=== PATIENT | male | born 1950 | race Caucasian/White ===

== ENCOUNTER → 2017-06-24 | Outpatient (CLI) | payer MEDICARE, OTHER ==
[~2017-06-24] MED LIST: ASCO-182 PO; ASPI81TA94 PO; ATOR40TA24 PO; AZIT-1 PO; BENZ200C15 PO; CLOB15CR22 TP; FLUT16SP19 NS; FLUT16SP20 NS; IBUP200C71 PO; MULT-865 PO; OMEG-5 PO; PRED20TA6 PO; VITA1CAP46 PO
== END ==
LOC: LAB 08:48
PROVIDERS: ATTEND Emergency Medicine
DX: E78.5 Hyperlipidemia, unspecified (principal)
CPT/HCPCS: 36415; 82465; 83718; 84478

== ENCOUNTER 2017-06-26 03:49 | Day surgery (SDC) | payer MEDICARE, OTHER ==
[~2017-06-26] VITALS: Ht 167.6 cm; Wt 84.8 kg
[2017-06-26] VITALS (8 sets, daily range): BP systolic 85–143; BP diastolic 54–82
[2017-06-26] MEDS ORDERED: MIDAZOLAM 2 MG/2 ML VIAL IVP ONE (08:00)
[2017-06-26] MEDS ORDERED: NORMOSOL R SOLN(*) 1000 ML BAG 1,000 ML IV PRN (08:00)
[2017-06-26] MEDS ORDERED: LIDOCAINE/SOD BICARB 8.4% SYR ID ONE (08:00)
[2017-06-26] MEDS ORDERED: LIDOCAINE MPF 1% 5 ML VIAL ONE (12:54)
[2017-06-26] MEDS ORDERED: PROPOFOL EMUL(*) 10MG/ML 20 ML 40 ML ONE (12:54)
[2017-06-26] MEDS ORDERED: PROPOFOL EMUL(*) 10MG/ML 20 ML 20 ML ONE (14:32)
[2017-06-29] MEDS ORDERED: ATOR40TA24 PO (09:50)
== END 2017-06-26 16:05 | disposition home or self-care (01) ==
LOC: OR 03:49
PROVIDERS: ATTEND Internal Medicine
DX: Z12.11 Encounter for screening for malignant neoplasm of colon (principal); K63.5 Polyp of colon
CPT/HCPCS: 00811; 45384; 88305; J2001; J2704

== ENCOUNTER → 2018-06-29 | Outpatient (CLI) | payer MEDICARE, OTHER ==
[~2018-06-29] MED LIST changes: +ALBU8.5H IH; +IBUP-136 PO; -IBUP200C71 PO
[2018-06-29 10:45] LABS: PLATELET COUNT, AUTOMATED 190 K/uL (150-450)
[2018-06-29 11:04] LABS: LDL CHOLESTEROL 51 mg/dl
== END ==
LOC: LAB 10:02
PROVIDERS: ATTEND Emergency Medicine
DX: Z12.5 Encounter for screening for malignant neoplasm of prostate (principal); R63.5 Abnormal weight gain; E78.5 Hyperlipidemia, unspecified; E66.9 Obesity, unspecified; G47.30 Sleep apnea, unspecified
CPT/HCPCS: 84443; 85025; G0103; 36415; 82040; 82247; 82310; 82374; 82435; 82465; 82565; 82947; 83718; 84075; 84132; 84153; 84155; 84295; 84450; 84460; 84478; 84520

== ENCOUNTER → 2018-07-02 | Outpatient (CLI) | payer MEDICARE, OTHER ==
[~2018-07-02] MED LIST changes: +TIOT4MIS5 INH
== END ==
LOC: RESP 06:03
PROVIDERS: ATTEND Emergency Medicine
DX: J98.4 Other disorders of lung (principal)
CPT/HCPCS: 94060; 94726; 94729

== ENCOUNTER → 2018-11-30 | Outpatient (CLI) | payer MEDICARE, OTHER ==
[~2018-11-30] MED LIST changes: +AMOX1TAB9 PO; +UMEC62.5 INH
--- NOTE | 2018-11-30 15:03 | RADIOLOGY IMAGING REPORT ---
FACILITY: [facility] - [place] PATIENT NAME: Sascha Croft : 1950 MR: [id number] V: [id number] EXAM DATE: ORDERING PHYSICIAN: BETSY STEPHEN TECHNOLOGIST: Location: [facility] - [place] Patient: Sascha Croft : 1950 Visit/Account:[id number] Date of Sevice: 11/30/2018 KNEE LEFT W CONTRAST COMPARISON: None. HISTORY: Left knee swelling for six days. Pain and fever. TECHNIQUE: Postcontrast axial CT of the left knee with coronal and sagittal reformats. One of the following dose optimization techniques was utilized in the performance of this exam: auto mated exposure control; adjustment of the mA and/or kV according to patient size; or use of iterative reconstruction technique. Specific details can be referenced in the facility's radiology CT exam op erational policy. CONTRAST: 75 mL Isovue-370 intravenously. FINDINGS: BONES : No acute fracture, significant arthropathy or evidence of osteomyelitis. Normal alignment. C hronic fragmentation of the proximal tibia anteriorly, just proximal to the tibial tubercle, which co uld be related to remote avulsion fracture or perhaps old Byron-Schlatter disease. FLUID: No knee joint effusion. SOFT TISSUES: Marked soft tissue edema anteriorly, surrounding a dominant soft tissue fluid collecti on anterior to the distal patellar tendon measuring 1.1 x 3.2 x 2.5 cm (series 3 image 67 and series 8 image 26). More proximally, anterior to the patellar tendon proximally there is a smaller similar f luid collection in the anterior soft tissues measuring 0.8 x 2.3 x 2.0 cm (series 3 image 45 and seri es 8 image 28). Neither contains gas. Both demonstrate mild peripheral enhancement but no internal en hancement. OTHER: Negative. IMPRESSION: 1. Now left knee effusion or evidence of osteomyelitis. 2. There are 2 nearby but probably discontiguous fluid collections in the soft tissues anterior to t he patellar tendon proximally and distally, with surrounding soft tissue edema. Neither fluid collect ion contains gas, but given the provided history, both may represent small soft tissue abscesses. 3. Bone fragments near the deep margin of the distal patellar tendon which could be due to remote av ulsion fracture or perhaps old Roe-Schlatter disease. Report Dictated By: Darvin Gautam at 11/30/2018 2:51 PM Report E-Signed By: Darvin Gautam at 11/30/2018 2:56 PM WSN:[id number]
== END ==
LOC: LAB 12:51
PROVIDERS: ATTEND Emergency Medicine
DX: M25.462 Effusion, left knee (principal)
CPT/HCPCS: 36415; 73701; Q9967; 82310; 82374; 82435; 82565; 82947; 84132; 84295; 84520

== ENCOUNTER → 2018-12-01 | Outpatient (CLI) | payer MEDICARE, OTHER | LOC: LAB 13:59 | PROVIDERS: ATTEND Surgery | DX: L02.416 Cutaneous abscess of left lower limb (principal); B95.61 Methicillin susceptible Staphylococcus aureus infection as the cause of diseases classified elsewhere | CPT/HCPCS: 87070; 87073; 87077; 87186 ==